=== PATIENT | male | born 1965 | race Hispanic/Latino ===

== ENCOUNTER 2022-12-30 13:07 | Inpatient (IN) | payer BC ==
[~2022-12-30] VITALS: Ht 177.8 cm; Wt 91.6 kg
[~2022-12-30 13:07] MED LIST: GABAPENTIN300 MG PO; GLIPIZIDE ER10 MG PO; LEVEMIR 3M100 UNITS/ SQ; LOPID600 MG PO; LOSARTAN POTASS25 MG PO; ONGLYZA5 MG PO; PRAVASTATIN SOD20 MG PO
[2022-12-30] MEDS ORDERED: CEFEPIME 2 GM in SODIUM CHLORIDE 0.9% 100 ML IV ONE (13:45)
[2022-12-30 13:56] LABS: BASOPHILS % 0.4 % (0.0-1.0); EOSINOPHILS # (AUTO) 0.1 (0.0-0.4); EOSINOPHILS % 1.2 % (0.0-6.0); HEMATOCRIT 37.2 % (38.2-49.6); HEMOGLOBIN 11.3 g/dL (14.0-18.0); LYMPHOCYTES # (AUTO) 1.9 (1.0-3.2); LYMPHOCYTES % 17.7 % (18.0-39.1); MEAN CORPUSCULAR HEMOGLOBIN 31.5 pg (28-32); MEAN CORPUSCULAR HGB CONC 30.4 g/dL (31-35); MEAN CORPUSCULAR VOLUME 103.6 fL (81-99); MONOCYTES % 8.9 % (4.4-11.3); NEUTROPHILS # (AUTO) 7.6 (2.1-6.9); NEUTROPHILS % 71.5 % (38.7-80.0); PLATELET COUNT 309 x10e3/uL (140-360); RED BLOOD COUNT 3.59 x10e6/uL (4.3-5.7)
[2022-12-30] MEDS ORDERED: Vancomycin IV 1 GM in SODIUM CHLORIDE 0.9% 250ML 250 ML IV ONE (14:00)
[2022-12-30 14:09] LABS: INR 1.08; PROTHROMBIN TIME 14.2 seconds (11.9-14.5)
[2022-12-30 14:17] LABS: ALANINE AMINOTRANSFERASE 13 IU/L (0-55); ALBUMIN 3.6 g/dL (3.5-5.0); ALBUMIN/GLOBULIN RATIO 0.9 (0.8-2.0); ALKALINE PHOSPHATASE 108 IU/L (40-150); ANION GAP 13.2 mmol/L (8-16); BLOOD UREA NITROGEN 35 mg/dL (7-26); BUN/CREATININE RATIO 15 (6-25); CALCIUM 8.4 mg/dL (8.4-10.2); CARBON DIOXIDE 17 mmol/L (22-29); CHLORIDE 111 mmol/L (98-107); CREATINE KINASE 327 IU/L (30-200); CREATININE, SERUM 2.34 mg/dL (0.72-1.25); GLUCOSE 85 mg/dL (74-118); MAGNESIUM 2.6 MG/DL (1.3-2.1); POTASSIUM 4.2 mmol/L (3.5-5.1); SODIUM 137 mmol/L (136-145)
[2022-12-30] MEDS ORDERED: DEXTROSE 50% SYRINGE 50 ML IV PRN (14:45)
[2022-12-30] MEDS ORDERED: ONDANSETRON HCL INJ 2MG/ML 2ML 2 MG/ML VIAL IV PRN (14:45)
[2022-12-30] MEDS ORDERED: SODIUM CHLORIDE 0.9% 1000ML 1,000 ML IV SCH (14:45)
[2022-12-30] MEDS ORDERED: CEFEPIME 2 GM in SODIUM CHLORIDE 0.9% 100 ML IV SCH (15:00)
[2022-12-30 16:11] VITALS: BP 123/64
[2022-12-30 16:28] VITALS: BP 123/64
[2022-12-30] MEDS: INSULIN LISPRO 100 UNIT/1 ML 3ML VIAL SQ SCH ×2 (16:30→21:00)
[2022-12-30] MEDS ORDERED: BENICAR20 MG PO (16:43)
[2022-12-30] MEDS ORDERED: HYDROCHLOROTHIA25 MG PO (16:43)
[2022-12-30] MEDS ORDERED: AMLODIPINE BESYL5 MG PO (16:43)
[2022-12-30] MEDS ORDERED: JARDIANCE25 MG PO ×2 (16:43→18:52)
[2022-12-30] MEDS ORDERED: ATORVASTATIN CA80 MG PO (16:43)
[2022-12-30] MEDS ORDERED: LASIX10 MG/ML PO (16:43)
[2022-12-30] MEDS ORDERED: NOVOLOG MI100 UNIT/1 SC ×2 (16:49)
[2022-12-30] MEDS ORDERED: TRULICITY0.75 MG/0. SC (16:54)
[2022-12-30] MEDS: ENOXAPARIN 30 MG/0.3 ML SYR SC SCH (17:10)
[2022-12-30] MEDS: SODIUM BICARBONATE 8.4% 50 ML in SODIUM CHLORIDE 0.45% 1,000 ML IV SCH (17:10)
[2022-12-30 17:41] VITALS: BP 148/76
[2022-12-30 20:00] VITALS: BP 116/65
[2022-12-30 21:00] VITALS: BP 116/65
[2022-12-30] MEDS: ACETAMINOPHEN 325 MG TAB PO PRN (21:16)
[2022-12-31] VITALS: BP 121/62
[2022-12-31 00:10] LABS: CREATINE KINASE 202 IU/L (30-200)
[2022-12-31] MEDS: SODIUM BICARBONATE 8.4% 50 ML in SODIUM CHLORIDE 0.45% 1,000 ML IV SCH ×3 (02:33→23:50)
[2022-12-31 04:00] VITALS: BP 121/59
[2022-12-31 05:51] LABS: BASOPHILS # (AUTO) 0.1 (0.0-0.1); BASOPHILS % 0.5 % (0.0-1.0); EOSINOPHILS # (AUTO) 0.1 (0.0-0.4); EOSINOPHILS % 1.5 % (0.0-6.0); HEMATOCRIT 31.4 % (38.2-49.6); HEMOGLOBIN 10.3 g/dL (14.0-18.0); LYMPHOCYTES # (AUTO) 1.1 (1.0-3.2); LYMPHOCYTES % 11.7 % (18.0-39.1); MEAN CORPUSCULAR HEMOGLOBIN 31.8 pg (28-32); MEAN CORPUSCULAR HGB CONC 32.8 g/dL (31-35); MONOCYTES # (AUTO) 0.9 (0.2-0.8); NEUTROPHILS # (AUTO) 7.3 (2.1-6.9); NEUTROPHILS % 76.9 % (38.7-80.0); PLATELET COUNT 265 x10e3/uL (140-360); RED BLOOD COUNT 3.24 x10e6/uL (4.3-5.7); RED CELL DISTRIBUTION WIDTH 13.2 % (11.7-14.4)
[2022-12-31 06:17] LABS: ALBUMIN 3.2 g/dL (3.5-5.0); ALBUMIN/GLOBULIN RATIO 0.8 (0.8-2.0); ANION GAP 13.4 mmol/L (8-16); CALCIUM 8.5 mg/dL (8.4-10.2); CREATININE, SERUM 2.1 mg/dL (0.72-1.25); POTASSIUM 4.4 mmol/L (3.5-5.1)
[2022-12-31 06:25] LABS: MEAN CORPUSCULAR VOLUME 96.9 fL (81-99)
[2022-12-31 06:37] LABS: CREATINE KINASE 180 IU/L (30-200)
[2022-12-31] MEDS: INSULIN LISPRO 100 UNIT/1 ML 3ML VIAL SQ SCH ×4 (07:30→21:00)
[2022-12-31 08:00] VITALS: BP 119/64
[2022-12-31] MEDS: ACETAMINOPHEN 325 MG TAB PO PRN (10:58)
[2022-12-31 11:08] VITALS: BP 112/50
[2022-12-31] MEDS: FOLIC ACID 1 MG TAB PO SCH (12:48)
[2022-12-31] MEDS ORDERED: CHOLESTYRAMINE 4 GM PACKET PO PRN (13:45)
[2022-12-31] MEDS: ENOXAPARIN 30 MG/0.3 ML SYR SC SCH (16:42)
[2022-12-31] MEDS: SODIUM BICARBONATE 650 MG TAB PO SCH (16:42)
[2022-12-31 20:00] VITALS: BP_SYST 112; BP_SYST 122; BP_DIAS 50; BP_DIAS 70
[2023-01-01] VITALS: BP 132/64
[2023-01-01 04:00] VITALS: BP 128/66
[2023-01-01 05:33] LABS: BASOPHILS # (AUTO) 0.1 (0.0-0.1); BASOPHILS % 0.5 % (0.0-1.0); EOSINOPHILS # (AUTO) 0.1 (0.0-0.4); HEMATOCRIT 31.9 % (38.2-49.6); HEMOGLOBIN 9.6 g/dL (14.0-18.0); LYMPHOCYTES # (AUTO) 1.2 (1.0-3.2); LYMPHOCYTES % 12.6 % (18.0-39.1); MEAN CORPUSCULAR HEMOGLOBIN 31.3 pg (28-32); MEAN CORPUSCULAR HGB CONC 30.1 g/dL (31-35); MEAN CORPUSCULAR VOLUME 103.9 fL (81-99); MONOCYTES # (AUTO) 0.8 (0.2-0.8); MONOCYTES % 8.7 % (4.4-11.3); NEUTROPHILS # (AUTO) 7.4 (2.1-6.9); PLATELET COUNT 245 x10e3/uL (140-360); RED BLOOD COUNT 3.07 x10e6/uL (4.3-5.7); RED CELL DISTRIBUTION WIDTH 12.6 % (11.7-14.4)
[2023-01-01 05:55] LABS: ANION GAP 13.9 mmol/L (8-16); CALCIUM 8.2 mg/dL (8.4-10.2); CREATININE, SERUM 1.8 mg/dL (0.72-1.25); POTASSIUM 3.9 mmol/L (3.5-5.1)
[2023-01-01] MEDS: INSULIN LISPRO 100 UNIT/1 ML 3ML VIAL SQ SCH ×2 (07:30→14:04)
[2023-01-01 08:00] VITALS: BP 128/66
[2023-01-01 08:23] VITALS: BP 130/60
[2023-01-01] MEDS: SODIUM BICARBONATE 650 MG TAB PO SCH (09:01)
[2023-01-01] MEDS: FOLIC ACID 1 MG TAB PO SCH (09:01)
[2023-01-01] MEDS: SODIUM BICARBONATE 8.4% 50 ML in SODIUM CHLORIDE 0.45% 1,000 ML IV SCH (11:29)
[2023-01-01] MEDS ORDERED: SODIUM BICARBO650 MG PO (12:10)
[2023-01-01] MEDS ORDERED: ONDANSETRON HCL 4 MG ORAL DISINTEGRATING TAB PO PRN (12:30)
== END 2023-01-01 14:37 | disposition home or self-care (01) | DRG 935 ==
LOC: ER 13:29 → ERHOLD 14:46 → MED/SURG2 17:23
PROVIDERS: ADMIT Internal Medicine; ATTEND Internal Medicine
DX: T25.221A Burn of second degree of right foot, initial encounter (principal); M62.82 Rhabdomyolysis; I12.9 Hypertensive chronic kidney disease with stage 1 through stage 4 chronic kidney disease, or unspecified chronic kidney disease; E11.22 Type 2 diabetes mellitus with diabetic chronic kidney disease; E78.00 Pure hypercholesterolemia, unspecified; N18.32 Chronic kidney disease, stage 3b; N25.89 Other disorders resulting from impaired renal tubular function; E87.8 Other disorders of electrolyte and fluid balance, not elsewhere classified; D53.9 Nutritional anemia, unspecified; E11.21 Type 2 diabetes mellitus with diabetic nephropathy; Z82.49 Family history of ischemic heart disease and other diseases of the circulatory system; Z79.4 Long term (current) use of insulin; Z79.84 Long term (current) use of oral hypoglycemic drugs; Z79.899 Other long term (current) drug therapy
CPT/HCPCS: 0223U; 36415; 80048; 80053; 82550; 82553; 82607; 82746; 82948; 83735; 84484; 85025; 85610; 85730; 87040; 99252; 99284; J0692; J1650; J2543; J3370; J7030; J7050

== ENCOUNTER → 2023-01-06 | Outpatient (CLI) | payer BC ==
[~2023-01-06] MED LIST changes: +AMLODIPINE BESYL5 MG PO; +ATORVASTATIN CA80 MG PO; +BENICAR20 MG PO; +HYDROCHLOROTHIA25 MG PO; +JARDIANCE25 MG PO; +LASIX10 MG/ML PO; +NOVOLOG MI100 UNIT/1 SC; +SODIUM BICARBO650 MG PO; +TRULICITY0.75 MG/0. SC
[2023-01-06 11:51] LABS: BASOPHILS # (AUTO) 0.1 (0.0-0.1); BASOPHILS % 0.8 % (0.0-1.0); EOSINOPHILS # (AUTO) 0.2 (0.0-0.4); EOSINOPHILS % 1.8 % (0.0-6.0); HEMATOCRIT 37.1 % (38.2-49.6); HEMOGLOBIN 12.1 g/dL (14.0-18.0); LYMPHOCYTES % 18.7 % (18.0-39.1); MEAN CORPUSCULAR HEMOGLOBIN 31.3 pg (28-32); MEAN CORPUSCULAR HGB CONC 32.6 g/dL (31-35); MEAN CORPUSCULAR VOLUME 96.1 fL (81-99); MONOCYTES # (AUTO) 0.8 (0.2-0.8); MONOCYTES % 7.4 % (4.4-11.3); NEUTROPHILS # (AUTO) 7.5 (2.1-6.9); NEUTROPHILS % 70.9 % (38.7-80.0); PLATELET COUNT 445 x10e3/uL (140-360); RED BLOOD COUNT 3.86 x10e6/uL (4.3-5.7); RED CELL DISTRIBUTION WIDTH 12.5 % (11.7-14.4)
[2023-01-06 12:22] LABS: ALBUMIN 3.6 g/dL (3.5-5.0); ALBUMIN/GLOBULIN RATIO 0.7 (0.8-2.0); ANION GAP 16.9 mmol/L (8-16); CALCIUM 9.8 mg/dL (8.4-10.2); CREATININE, SERUM 1.73 mg/dL (0.72-1.25); POTASSIUM 3.9 mmol/L (3.5-5.1)
== END ==
LOC: WCC 07:47
PROVIDERS: ATTEND Podiatrist Foot & Ankle Surgery
DX: E11.621 Type 2 diabetes mellitus with foot ulcer (principal); E11.40 Type 2 diabetes mellitus with diabetic neuropathy, unspecified; S91.309A Unspecified open wound, unspecified foot, initial encounter; L97.411 Non-pressure chronic ulcer of right heel and midfoot limited to breakdown of skin; L97.412 Non-pressure chronic ulcer of right heel and midfoot with fat layer exposed; H59.092 Other disorders of the left eye following cataract surgery; R60.0 Localized edema; N18.9 Chronic kidney disease, unspecified; I10 Essential (primary) hypertension; D64.9 Anemia, unspecified; E78.5 Hyperlipidemia, unspecified; T25.221A Burn of second degree of right foot, initial encounter; T54.91XA Toxic effect of unspecified corrosive substance, accidental (unintentional), initial encounter
CPT/HCPCS: 36415; 80053; 83036; 84134; 85025; 85651; 87071; 87075; 87186; 87205

== ENCOUNTER → 2023-01-13 | Outpatient (CLI) | payer BC | LOC: WCC 08:36 | PROVIDERS: ATTEND Family Medicine Adult Medicine | DX: E11.621 Type 2 diabetes mellitus with foot ulcer (principal); E11.40 Type 2 diabetes mellitus with diabetic neuropathy, unspecified; L97.411 Non-pressure chronic ulcer of right heel and midfoot limited to breakdown of skin; L97.412 Non-pressure chronic ulcer of right heel and midfoot with fat layer exposed; S91.309A Unspecified open wound, unspecified foot, initial encounter; T25.221A Burn of second degree of right foot, initial encounter; B95.7 Other staphylococcus as the cause of diseases classified elsewhere; R60.0 Localized edema; H59.092 Other disorders of the left eye following cataract surgery; N18.9 Chronic kidney disease, unspecified; I10 Essential (primary) hypertension; D64.9 Anemia, unspecified; E78.5 Hyperlipidemia, unspecified; G90.09 Other idiopathic peripheral autonomic neuropathy; T54.91XA Toxic effect of unspecified corrosive substance, accidental (unintentional), initial encounter ==

== ENCOUNTER → 2023-01-20 | Outpatient (CLI) | payer BC | LOC: WCC 07:49 | PROVIDERS: ATTEND Podiatrist Foot & Ankle Surgery | DX: E11.621 Type 2 diabetes mellitus with foot ulcer (principal); E11.40 Type 2 diabetes mellitus with diabetic neuropathy, unspecified; L97.411 Non-pressure chronic ulcer of right heel and midfoot limited to breakdown of skin; L97.412 Non-pressure chronic ulcer of right heel and midfoot with fat layer exposed; S91.309S Unspecified open wound, unspecified foot, sequela; R60.0 Localized edema; H59.092 Other disorders of the left eye following cataract surgery; T25.221S Burn of second degree of right foot, sequela; T54.91XS Toxic effect of unspecified corrosive substance, accidental (unintentional), sequela; N18.9 Chronic kidney disease, unspecified; I10 Essential (primary) hypertension; B95.7 Other staphylococcus as the cause of diseases classified elsewhere; G90.09 Other idiopathic peripheral autonomic neuropathy; E78.5 Hyperlipidemia, unspecified; D64.9 Anemia, unspecified ==

== ENCOUNTER → 2023-01-27 | Outpatient (CLI) | payer BC ==
[~2023-01-27] MED LIST changes: +MINERAL OIL/PETROLAT/GLYCERI 6OZ BTL ONE
== END ==
LOC: WCC 07:56
PROVIDERS: ATTEND Podiatrist Foot & Ankle Surgery
DX: E11.621 Type 2 diabetes mellitus with foot ulcer (principal); L97.512 Non-pressure chronic ulcer of other part of right foot with fat layer exposed; R60.0 Localized edema

== ENCOUNTER → 2023-02-10 | Outpatient (CLI) | payer BC ==
[~2023-02-10] MED LIST changes: -MINERAL OIL/PETROLAT/GLYCERI 6OZ BTL ONE
== END ==
LOC: WCC 08:40
PROVIDERS: ATTEND Internal Medicine Infectious Disease
DX: E11.621 Type 2 diabetes mellitus with foot ulcer (principal); L97.512 Non-pressure chronic ulcer of other part of right foot with fat layer exposed; R60.0 Localized edema

== ENCOUNTER → 2023-02-24 | Outpatient (CLI) | payer BC ==
[~2023-02-24] MED LIST changes: +MINERAL OIL/PETROLAT/GLYCERI 6OZ BTL ONE
== END ==
LOC: WCC 07:40
PROVIDERS: ATTEND Podiatrist Foot & Ankle Surgery
DX: E11.621 Type 2 diabetes mellitus with foot ulcer (principal); L97.512 Non-pressure chronic ulcer of other part of right foot with fat layer exposed; R60.0 Localized edema